=== PATIENT | male | born 1960 | race Caucasian/White ===

== ENCOUNTER 2017-08-07 20:48 | Observation (INO) | payer MEDICAID ==
[2017-08-07 20:48] VITALS: BMI 26.8
--- NOTE | 2017-08-07 21:03 | C.PDOC ---
History Of Present Illness Patient is a 57 y/o male who presents to the ED with complaints of intermittent SOB and chest pain for the last 5 days. Patient is able to speak in complete sentences. Patient denies any other pain at this time. Chief Complaint (Nursing): Chest Pain History Per: Patient History/Exam Limitations: no limitations Onset/Duration Of Symptoms: Days (x5 days. ), Intermittent Episodes Current Symptoms Are (Timing): Still Present Recent travel outside of the [place]: No Past Medical History Reviewed: Historical Data, Nursing Documentation, Vital Signs Vital Signs: Last Vital Signs Temp 97.7 F 08/07/17 21:06 Pulse 61 08/07/17 22:49 Resp 18 08/07/17 22:49 BP 104/58 L 08/07/17 22:49 Pulse Ox 100 08/07/17 22:49 - Medical History PMH: Asthma Denies: Chronic Kidney Disease Surgical History: No Surg Hx - [facility] Procedures MEASURE OF CARDIAC SAMPL & PRESSURE, L HEART, PERC APPROACH (09/22/16) PLAIN RADIOGRAPHY OF LEFT HEART USING LOW OSMOLAR CONTRAST (09/22/16) PLAIN RADIOGRAPHY OF MULT COR ART USING L OSM CONTRAST (09/22/16) Family History: States: Unknown Family Hx - Social History Hx Alcohol Use: Yes Hx Substance Use: No - Immunization History Hx Tetanus Toxoid Vaccination: No Hx Influenza Vaccination: No Hx Pneumococcal Vaccination: No Review Of Systems Constitutional: Negative for: Fever, Chills Cardiovascular: Positive for: Chest Pain Respiratory: Positive for: Shortness of Breath Gastrointestinal: Negative for: Nausea, Vomiting, Diarrhea Physical Exam - Physical Exam Appears: Well, Non-toxic Skin: Normal Color, Warm, Dry Head: Atraumatic, Normacephalic Oral Mucosa: Moist Chest: Symmetrical Cardiovascular: Rhythm Regular, No Murmur Respiratory: Normal Breath Sounds, No Rales, No Rhonchi, No Wheezing Gastrointestinal/Abdominal: Soft, No Tenderness Extremity: Normal ROM (x4) Neurological/Psych: Oriented x3, Normal Speech, Normal Cognition ED Course And Treatment - Laboratory Results Result Diagrams: 08/07/17 21:33 08/07/17 21:33 ECG: Interpreted By Me, Viewed By Me ECG Rhythm: Sinus Rhythm, ST/T Changes ECG Interpretation: Abnormal Interpretation Of ECG: NSR, ST-T abnormality anterolateral area, no signaificant change from tracings of 09/18/2016 Progress Note: CXR, EKG, and blood work ordered; Aspirin, nitrostat, and IV fluids administered. Disposition Discussed With .: Jaylen Monroy - Disposition Referrals: Earl Amos MD [Primary Care Provider] - Disposition: HOSPITALIZED Disposition Time: 23:04 Condition: STABLE Forms: [facility] (Uzbek) - Clinical Impression Clinical Impression: Chest pain - Scribe Statement The provider has reviewed the documentation as recorded by the Scribe Mia Morel All medical record entries made by the Scribe were at my direction and personally dictated by me. I have reviewed the chart and agree that the record accurately reflects my personal performance of the history, physical exam, medical decision making, and the department course for this patient. I have also personally directed, reviewed, and agree with the discharge instructions and disposition.
[2017-08-07] MEDS ORDERED: Sodium Chloride 0.9% 1,000 ML IV ONE (21:08)
[2017-08-07] MEDS ORDERED: Sodium Chloride 0.9% 1,000 ML ONE (21:19)
[2017-08-07 21:37] LABS: BASO % 0.7 % (0.0-2.0); EOS # 0.1 K/uL (0.0-0.7); EOS % 2.6 % (0.0-4.0); HEMATOCRIT 38.6 % (35.0-51.0); LYMPH # 1.8 K/uL (1.0-4.3); LYMPH % 35.7 % (20.0-40.0); MEAN CELL VOLUME 86.7 fL (80.0-94.0); MEAN CORPUSCULAR HEMOGLOBIN 28.7 pg (27.0-31.0); MEAN CORPUSCULAR HGB CONC 33.1 g/dL (33.0-37.0); MEAN PLATELET VOLUME 7.8 fL (7.2-11.7); MONO # 0.4 K/uL (0.0-0.8); MONO % 7.3 % (0.0-10.0); NRBC % 0.1 % (0.0-2.0); RED CELL DISTRIBUTION WIDTH 13.6 % (11.5-14.5)
[2017-08-07 21:45] LABS: CHLORIDE 107 mmol/L (98-107); POTASSIUM 3.7 mmol/L (3.6-5.2); SODIUM 141 mmol/L (132-148)
[2017-08-07 21:47] LABS: GFR AFRICAN-AMERICAN > 60
[2017-08-07 21:48] LABS: ALB/GLOB RATIO 1.5 (1.0-2.1); ALKALINE PHOSPHATASE 82 U/L (38-126); ALT/SGPT 35 U/L (21-72); AST/SGOT 28 U/L (17-59); BILIRUBIN,TOTAL 0.4 mg/dL (0.2-1.3); BLOOD UREA NITROGEN 20 mg/dL (9-20); CALCIUM 7.8 mg/dl (8.6-10.4); CARBON DIOXIDE 23 mmol/L (22-30); GLUCOSE,RANDOM 88 mg/dL (75-110); TOTAL PROTEIN 6.4 g/dL (6.3-8.3)
[2017-08-07 21:53] LABS: PARTIAL THROMBOPLASTIN TIME 30 SECONDS (21-34)
[2017-08-07] MEDS ORDERED: Nitroglycerin 2% Ointment Foilpak UD TOP STA ×2 (22:42→22:54)
[2017-08-07] MEDS ORDERED: Nitroglycerin 2% Ointment Foilpak UD TOP ONE (22:52)
[2017-08-08 02:32] VITALS: RESP 20
--- NOTE | 2017-08-08 04:12 | CP.PCM.HP ---
<Jaylen Monroy - Last Filed: 08/08/17 08:20> Meds Allergies/Adverse Reactions: Allergies Allergy/AdvReac Type Severity Reaction Status Date / Time No Known Allergies Allergy Verified 08/07/17 21:02 Results - Vital Signs Recent Vital Signs: Last Vital Signs Temp 97.6 F 08/08/17 04:45 Pulse 52 L 08/08/17 04:45 Resp 20 08/08/17 04:45 BP 111/69 08/08/17 04:45 Pulse Ox 97 08/08/17 04:45 - Labs Result Diagrams: 08/07/17 21:33 08/07/17 21:33 Labs: Laboratory Results - last 24 hr 08/08/17 02:12 Troponin I < 0.0120 Attending/Attestation - Attestation I have personally seen and examined this patient.: Yes I have fully participated in the care of the patient.: Yes I have reviewed all pertinent clinical information: Yes Notes (Text): Atypical chest pain, patient is comfortable, giving multiple complains, wandering form 1 complain to another, in cxr poor inspiratory effort but other [place] no pna, maintained spo2 on ra, inverted t waves in V lead noticed in prior ekgs, patient had cardiac catheterization last year for similar ekg changes had clean coronaries. Will d/c home if repeat ekg unchanged, and negative troponin. <Vanda Reyes - Last Filed: 08/08/17 22:11> History of Present Illness - History of Present Illness History of Present Illness: HPI: Pt is a 57M with PMH asthma presents to the ED c/o hand pain/swelling and exertional SOB. Patient says this started about 3 weeks ago. Patient says he does not get SOB at rest. Patient admits to associated chest pain and describes it as midsternal without radiation. Patient says he was mostly worried about the hand swelling/pain because his [id number] had this one time and ended up dying. He says he also has cramps in his legs and swelling in his feet for 2 weeks that occurs while walking. Patient says the cramps slowly get better with rest. He also admits to a frontal headache that started today. Pt denies AP/N/V/ D/C, dizziness, palpitations, cough, and changes in urination. PMH: asthma Meds: prn seasonal allergies, otherwise denies PSH: denies Allergies: seasonal FamHx: DM (father) arthritis (brother) SocHx: 3-4 shots liquor 1/wk, occasional smoker (when he drinks), denies drug use Present on Admission - Present on Admission Any Indicators Present on Admission: No Past Patient History - Infectious Disease Hx of Infectious Diseases: None - Past Medical History & Family History Past Medical History?: No - Past Social History Smoking Status: Light Smoker < 10 Cigarettes Daily - CARDIAC Other/Comment: chest pain - PULMONARY Hx Asthma: Yes - NEUROLOGICAL Hx Neurological Disorder: No - HEENT Hx HEENT Problems: No - RENAL Hx Chronic Kidney Disease: No - ENDOCRINE/METABOLIC Hx Endocrine Disorders: No - HEMATOLOGICAL/ONCOLOGICAL Hx Blood Disorders: No - INTEGUMENTARY Hx Dermatological Problems: No - MUSCULOSKELETAL/RHEUMATOLOGICAL Hx Falls: Yes - GASTROINTESTINAL Hx Gastrointestinal Disorders: No - GENITOURINARY/GYNECOLOGICAL Hx Genitourinary Disorders: No - PSYCHIATRIC Hx Substance Use: No - SURGICAL HISTORY Hx Surgeries: No - ANESTHESIA Hx Anesthesia: No Hx Anesthesia Reactions: No Hx Malignant Hyperthermia: No Physical Exam - Constitutional Appears: Non-toxic, No Acute Distress - Head Exam Head Exam: NORMAL INSPECTION - Eye Exam Eye Exam: EOMI - ENT Exam ENT Exam: Mucous Membranes Moist - Respiratory Exam Respiratory Exam: Clear to Auscultation Bilateral, NORMAL BREATHING PATTERN. absent: Chest Wall Tenderness, Wheezes, Respiratory Distress - Cardiovascular Exam Cardiovascular Exam: REGULAR RHYTHM, +S1, +S2 - GI/Abdominal Exam GI & Abdominal Exam: Normal Bowel Sounds, Soft. absent: Distended, Tenderness - Extremities Exam Extremities exam: Positive for: normal inspection, pedal pulses present. Negative for: pedal edema, tenderness Additional comments: no swelling in hands or feet. sensation intact b/l. no pain with palpation to hands or feet. - Neurological Exam Neurological exam: Alert, Oriented x3 - Psychiatric Exam Psychiatric exam: Normal Affect, Normal Mood - Skin Skin Exam: Dry, Intact, Normal Color, Warm Results - Vital Signs Recent Vital Signs: Last Vital Signs Temp 97.8 F 08/08/17 00:40 Pulse 70 08/08/17 03:55 Resp 20 08/08/17 00:40 BP 114/71 08/08/17 00:40 Pulse Ox 96 08/08/17 00:40 - Labs Result Diagrams: 08/08/17 08:19 08/08/17 08:19 Labs: Laboratory Results - last 24 hr 08/08/17 02:12 Troponin I < 0.0120 Assessment & Plan - Assessment and Plan (Free Text) Assessment: Shortness of Breath on Exertion * ECG: no change from prior * F/U CXR * AL neg x2 f/u AL * 09/23/16 Cardiac cath: normal coronary arteries and LV systolic function Hand Pain/Swelling * No swelling noted on exam or pain with palpation * Possible osteoarthritis Disposition: Patient likely d/c 08/08 pending AL results.
[2017-08-08 08:27] LABS: BASO % 0.7 % (0.0-2.0); EOS # 0.1 K/uL (0.0-0.7); EOS % 2.8 % (0.0-4.0); HEMATOCRIT 38.1 % (35.0-51.0); LYMPH # 1.5 K/uL (1.0-4.3); LYMPH % 34.6 % (20.0-40.0); MEAN CELL VOLUME 86.8 fL (80.0-94.0); MEAN CORPUSCULAR HEMOGLOBIN 28.9 pg (27.0-31.0); MEAN CORPUSCULAR HGB CONC 33.2 g/dL (33.0-37.0); MEAN PLATELET VOLUME 8.6 fL (7.2-11.7); MONO # 0.3 K/uL (0.0-0.8); MONO % 6.6 % (0.0-10.0); RED CELL DISTRIBUTION WIDTH 13.9 % (11.5-14.5); WHITE BLOOD COUNT 4.4 K/uL (4.8-10.8)
--- NOTE | 2017-08-08 08:47 | CP.PCM.DIS ---
Provider - Provider Date of Admission: 08/07/17 23:05 Attending physician: Jaylen Monroy MD Primary care physician: Earl Amos MD Time Spent in preparation of Discharge (in minutes): 29 Hospital Course - Lab Results Lab Results: Most Recent Lab Values WBC 4.4 K/uL (4.8-10.8) L 08/08/17 08:19 RBC 4.39 Mil/uL (4.40-5.90) L 08/08/17 08:19 Hgb 12.7 g/dL (12.0-18.0) 08/08/17 08:19 Hct 38.1 % (35.0-51.0) 08/08/17 08:19 MCV 86.8 fL (80.0-94.0) 08/08/17 08:19 MCH 28.9 pg (27.0-31.0) 08/08/17 08:19 MCHC 33.2 g/dL (33.0-37.0) 08/08/17 08:19 RDW 13.9 % (11.5-14.5) 08/08/17 08:19 Plt Count 181 K/uL (130-400) 08/08/17 08:19 MPV 8.6 fL (7.2-11.7) 08/08/17 08:19 Neut % (Auto) 55.3 % (50.0-75.0) 08/08/17 08:19 Lymph % (Auto) 34.6 % (20.0-40.0) 08/08/17 08:19 Daniels % (Auto) 6.6 % (0.0-10.0) 08/08/17 08:19 Eos % (Auto) 2.8 % (0.0-4.0) 08/08/17 08:19 Baso % (Auto) 0.7 % (0.0-2.0) 08/08/17 08:19 Neut # 2.4 K/uL (1.8-7.0) 08/08/17 08:19 Lymph # 1.5 K/uL (1.0-4.3) 08/08/17 08:19 Daniels # 0.3 K/uL (0.0-0.8) 08/08/17 08:19 Eos # 0.1 K/uL (0.0-0.7) 08/08/17 08:19 Baso # 0.0 K/uL (0.0-0.2) 08/08/17 08:19 PT 10.6 SECONDS (9.7-12.2) 08/07/17 21:33 INR 1.0 08/07/17 21:33 APTT 30 SECONDS (21-34) 08/07/17 21:33 D-Dimer, Quantitative < 200 ng/mlDDU (0-243) 08/07/17 21:33 Sodium 141 mmol/L (132-148) 08/07/17 21:33 Potassium 3.7 mmol/L (3.6-5.2) 08/07/17 21:33 Chloride 107 mmol/L (98-107) 08/07/17 21:33 Carbon Dioxide 23 mmol/L (22-30) 08/07/17 21:33 Anion Gap 15 (10-20) 08/07/17 21:33 BUN 20 mg/dL (9-20) 08/07/17 21:33 Creatinine 0.9 MG/DL (0.8-1.5) 08/07/17 21:33 Est GFR ( Amer) > 60 08/07/17 21:33 Est GFR (Non-Af Amer) > 60 08/07/17 21:33 Random Glucose 88 mg/dL (75-110) 08/07/17 21:33 Calcium 7.8 mg/dl (8.6-10.4) L 08/07/17 21:33 Total Bilirubin 0.4 mg/dL (0.2-1.3) 08/07/17 21:33 AST 28 U/L (17-59) 08/07/17 21:33 ALT 35 U/L (21-72) 08/07/17 21:33 Alkaline Phosphatase 82 U/L (38-126) 08/07/17 21:33 Troponin I < 0.0120 ng/mL (0.00-0.120) 08/08/17 02:12 Total Protein 6.4 g/dL (6.3-8.3) 08/07/17 21:33 Albumin 3.8 g/dL (3.5-5.0) 08/07/17 21:33 Globulin 2.5 gm/dL (2.2-3.9) 08/07/17 21:33 Albumin/Globulin Ratio 1.5 (1.0-2.1) 08/07/17 21:33 - Hospital Course Hospital Course: This is a very plesant 57 year old male who came to the hospital with several somewhat unrelated concerns but was kept overnight for observation due to complaints of chest discomfort and arm and hand numbness. He explains that it had been going on for some time now and reported that he felt anxious about it. His overnight cardiac enzymes have been negative and the repeat EKGs have been NSR. He was monitored on telemetry and on exam we also walked him around the hallway with a HR in the mid 50s and 60s. He ambulated without assistance and did not report chest pain or palpitation or shortness of breath when walking with us. With reguards to his EKGs, it does have some T wave inversions, however old EKGs from 2016 also show similar appearance He denied any active chest pain or shortness of breath when I saw him. The CXRAY was ok as well. He had a D-Dimer as well - this too was negative. He is a smoker and while his cardiac enzymes, D-Dimer was negative I explained to him that he would benefit from stopping smoking as well. He had in August 2016 a cardiac cath done which showed a normal LAD, normal RCA as well. Discharge Exam - Head Exam Head Exam: NORMAL INSPECTION - Eye Exam Eye Exam: EOMI, Normal appearance - ENT Exam ENT Exam: Mucous Membranes Moist - Respiratory Exam Respiratory Exam: Clear to PA & Lateral, NORMAL BREATHING PATTERN, UNREMARKABLE - Cardiovascular Exam Cardiovascular Exam: REGULAR RHYTHM - GI/Abdominal Exam GI & Abdominal Exam: Normal Bowel Sounds, Unremarkable - Neurological Exam Neurological exam: Alert, CN II-XII Intact, Normal Gait, Oriented x3 - Psychiatric Exam Psychiatric exam: Normal Affect, Normal Mood - Skin Skin Exam: Normal Color, Warm Discharge Plan - Follow Up Plan Condition: STABLE Disposition: HOME/ ROUTINE Referrals: Earl Amos MD [Primary Care Provider] -
[2017-08-08 08:48] LABS: CHLORIDE 108 mmol/L (98-107)
[2017-08-08 08:49] LABS: POTASSIUM 3.9 mmol/L (3.6-5.2); SODIUM 139 mmol/L (132-148)
[2017-08-08 08:52] LABS: ALB/GLOB RATIO 1.3 (1.0-2.1); ALKALINE PHOSPHATASE 89 U/L (38-126); ALT/SGPT 32 U/L (21-72); AST/SGOT 25 U/L (17-59); BILIRUBIN,TOTAL 0.5 mg/dL (0.2-1.3); BLOOD UREA NITROGEN 16 mg/dL (9-20); CARBON DIOXIDE 21 mmol/L (22-30); GFR AFRICAN-AMERICAN > 60; GLUCOSE,RANDOM 84 mg/dL (75-110); PHOSPHOROUS 3.3 mg/dL (2.5-4.5); TOTAL PROTEIN 5.9 g/dL (6.3-8.3)
[2017-08-08 08:53] LABS: CALCIUM 7.7 mg/dl (8.6-10.4); MAGNESIUM 1.8 mg/dL (1.6-2.3)
--- NOTE | 2017-08-08 11:15 | RAD ---
PROCEDURE: CHEST RADIOGRAPH, 1 VIEW HISTORY: chest pain COMPARISON: 09/18/2016 FINDINGS: LUNGS: Clear. PLEURA: No pneumothorax or pleural fluid seen. CARDIOVASCULAR: Normal. OSSEOUS STRUCTURES: No significant abnormalities. VISUALIZED UPPER ABDOMEN: Normal. OTHER FINDINGS: None. IMPRESSION: No active disease.
[2017-08-08 13:36] VITALS: BP 121/76; PULSE 57; TEMP 97.6; O2SAT 98
--- NOTE | 2017-08-10 12:31 | CARD ---
APPROVED REPORT EKG Measurement Heart [id number] ID [id number] <Conclusion> Normal sinus rhythm ST & T wave abnormality, consider anterolateral ischemia Abnormal ECG
--- NOTE | 2017-08-11 17:20 | CARD ---
APPROVED REPORT EKG Measurement Heart [id number] <Conclusion> Sinus bradycardia ST & Marked T wave abnormality, consider anterolateral ischemia and / or LVH with repolarization abnormality. Abnormal ECG
== END 2017-08-08 13:37 | disposition home or self-care (01) ==
LOC: SUPCPDRO 20:48 → C.ER 20:48 → C.9E 23:05 → C.6T 23:23
PROVIDERS: ADMIT Internal Medicine; ATTEND Internal Medicine
DX: R07.89 Other chest pain (principal); R06.02 Shortness of breath; R20.0 Anesthesia of skin; J45.909 Unspecified asthma, uncomplicated; F17.210 Nicotine dependence, cigarettes, uncomplicated; M79.89 Other specified soft tissue disorders
CPT/HCPCS: 36415; 71010; 80053; 83735; 84100; 84484; 85025; 85378; 85610; 85730; 93005; 99285; G0378; J7040

== ENCOUNTER 2018-09-08 11:10 | Emergency (ER) | payer MEDICAID ==
[2018-09-08 11:10] VITALS: BMI 26.8
[2018-09-08] MEDS ORDERED: Sodium Chloride 0.9% 1,000 ML IV ONE (11:50)
[2018-09-08 12:05] LABS: BASO % 0.6 % (0.0-2.0); EOS # 0.1 K/uL (0.0-0.7); EOS % 1.4 % (0.0-4.0); LYMPH # 1.6 K/uL (1.0-4.3); LYMPH % 24.9 % (20.0-40.0); MEAN CELL VOLUME 87.2 fL (80.0-94.0); MEAN CORPUSCULAR HEMOGLOBIN 30.3 pg (27.0-31.0); MEAN CORPUSCULAR HGB CONC 34.7 g/dL (33.0-37.0); MEAN PLATELET VOLUME 7.8 fL (7.2-11.7); MONO # 0.5 K/uL (0.0-0.8); MONO % 7.9 % (0.0-10.0); NEUT # 4.1 K/uL (1.8-7.0); NEUT % 65.2 % (50.0-75.0); RBC 4.28 Mil/uL (4.40-5.90); RED CELL DISTRIBUTION WIDTH 13.5 % (11.5-14.5); WHITE BLOOD COUNT 6.3 K/uL (4.8-10.8)
[2018-09-08] MEDS ORDERED: Albuterol-Ipratrop 3 mg / 0.5 (3 ml) UD ONE (12:07)
[2018-09-08] MEDS: Albuterol-Ipratrop 3 mg / 0.5 (3 ml) UD IH SCH ×3 (12:10→12:30)
--- NOTE | 2018-09-08 12:12 | C.PDOC ---
History Of Present Illness 58-year-old male, whose PMHx includes Asthma, presents to the ED for evaluation of chest pain and shortness of breath. Patient notes chest pain is exacerbated by deep breathing. Patient has been using inhaler without relief, and presents to the ED for further evaluation. He denies fever, chills, nausea, vomiting, weakness. Time Seen by Provider: 09/08/18 11:25 Chief Complaint (Nursing): Chest Pain History Per: Patient History/Exam Limitations: no limitations Onset/Duration Of Symptoms: Days Current Symptoms Are (Timing): Still Present Quality: "Pain" Additional History Per: Patient Past Medical History Reviewed: Historical Data, Nursing Documentation, Vital Signs Vital Signs: Last Vital Signs Temp 97.9 F 09/08/18 11:16 Pulse 70 09/08/18 11:16 Resp 19 09/08/18 11:16 BP 125/78 09/08/18 11:16 Pulse Ox 97 09/08/18 11:16 - Medical History PMH: Asthma Denies: Chronic Kidney Disease Surgical History: No Surg Hx - [facility] Procedures MEASURE OF CARDIAC SAMPL & PRESSURE, L HEART, PERC APPROACH (09/22/16) PLAIN RADIOGRAPHY OF LEFT HEART USING LOW OSMOLAR CONTRAST (09/22/16) PLAIN RADIOGRAPHY OF MULT COR ART USING L OSM CONTRAST (09/22/16) Family History: States: Unknown Family Hx - Social History Hx Alcohol Use: Yes Hx Substance Use: Yes - Immunization History Hx Tetanus Toxoid Vaccination: No Hx Influenza Vaccination: No Hx Pneumococcal Vaccination: No Review Of Systems Constitutional: Negative for: Fever, Chills Cardiovascular: Positive for: Chest Pain Respiratory: Positive for: Shortness of Breath Gastrointestinal: Negative for: Nausea, Vomiting Neurological: Negative for: Weakness Physical Exam - Physical Exam Appears: Non-toxic, No Acute Distress Skin: Normal Color, Warm, Dry Head: Atraumatic, Normacephalic Eye(s): bilateral: Normal Inspection Oral Mucosa: Moist Neck: Supple Chest: Symmetrical, No Deformity, No Tenderness Cardiovascular: Rhythm Regular, No Murmur Respiratory: Normal Breath Sounds, No Rales, No Rhonchi, No Wheezing Extremity: Normal ROM, Capillary Refill (less than 2 seconds ) Neurological/Psych: Oriented x3, Normal Speech, Normal Cognition ED Course And Treatment - Laboratory Results Result Diagrams: 09/08/18 12:00 09/08/18 12:00 Lab Interpretation: Normal ECG: Interpreted By Me ECG Rhythm: Sinus Rhythm Rate From EC O2 Sat by Pulse Oximetry: 97 (on RA) Pulse Ox Interpretation: Normal - Radiology CXR: Interpreted by Me CXR Interpretation: Yes: No Acute Disease Progress Note: Bloodwork, urinalysis, CXR, EKG ordered and reviewed. Albuterol INH and IV Fluids given. On re-evaluation lungs clear, in no distress Reassessment Condition: Improved Disposition Counseled Patient/Family Regarding: Studies Performed, Diagnosis, Need For Followup - Disposition [facility] Disposition: HOME/ ROUTINE Disposition Time: 13:30 Condition: STABLE Additional Instructions: Follow up with your PMD for further evaluation Instructions: Asthma in Adults, Asthma, Adult (DC) Forms: [employer] [facility] (Uruguayan) - POA Present On Arrival: None - Clinical Impression Clinical Impression: Asthma exacerbation - PA / SPORTS MEDICINE PHYSICIAN / Resident Statement MD/DO has reviewed & agrees with the documentation as recorded. - Scribe Statement The provider has reviewed the documentation as recorded by the Scribe (Rachel Neumann) All medical record entries made by the Scribe were at my direction and personally dictated by me. I have reviewed the chart and agree that the record accurately reflects my personal performance of the history, physical exam, medical decision making, and the department course for this patient. I have also personally directed, reviewed, and agree with the discharge instructions and disposition.
[2018-09-08 12:19] LABS: ALB/GLOB RATIO 1.4 (1.0-2.1); ALT/SGPT 25 U/L (21-72); AST/SGOT 31 U/L (17-59); BLOOD UREA NITROGEN 16 mg/dL (9-20); CALCIUM 8.9 mg/dl (8.6-10.4); GFR NON-AFRICAN AMERICAN > 60
--- NOTE | 2018-09-08 12:24 | RAD ---
Date of service: 09/08/2018 HISTORY: SOB COMPARISON: Portable chest 08/07/2017. TECHNIQUE: Chest PA and lateral FINDINGS: LUNGS: No active pulmonary disease. PLEURA: No significant pleural effusion identified. No pneumothorax apparent. CARDIOVASCULAR: Normal. OSSEOUS STRUCTURES: No significant abnormalities. VISUALIZED UPPER ABDOMEN: Normal. OTHER FINDINGS: None. IMPRESSION: No interval acute cardiopulmonary disease appreciated.
[2018-09-08 12:28] LABS: CK-MB 2.33 ng/mL (0.0-3.38)
[2018-09-08 13:44] VITALS: BP 122/72; PULSE 73; RESP 18; TEMP 98
[2018-09-08 18:32] VITALS: O2SAT 97
--- NOTE | 2018-09-10 14:57 | CARD ---
APPROVED REPORT Date of service: 09/08/2018 EKG Measurement Heart [id number] <Conclusion> Normal sinus rhythm ST & T wave abnormality, consider anterolateral ischemia Abnormal ECG
== END 2018-09-08 13:44 | disposition home or self-care (01) ==
LOC: C.ER 11:10
DX: J45.901 Unspecified asthma with (acute) exacerbation (principal); F17.210 Nicotine dependence, cigarettes, uncomplicated
CPT/HCPCS: 71046; 80053; 82553; 84484; 85025; 85378; 93005; 96360; 99284; J7030